=== PATIENT | male | born 1970 | race Caucasian/White ===

== ENCOUNTER 2021-04-18 10:02 | Emergency (ER) | payer OTHER ==
[2021-04-18] MEDS ORDERED: KETOROLAC 15 MG/ML 1 ML VIAL IM STA (10:20)
--- NOTE | 2021-04-18 10:28 | ED ---
General Adult HPI - General Chief complaint: Chest Pain Stated complaint: rib pain Time Seen by Provider: 04/18/21 10:13 Source: patient, RN notes reviewed Mode of arrival: ambulatory Limitations: no limitations - History of Present Illness Initial comments: Patient is a 50-year-old male that presents to the emergency department complaining of inferior bilateral rib pain. He notes that he was opening his pull when he leaned over the railing and felt his ribs crack kind of like his fingers popping. He does have significant medical history of a esophagectomy and gastric pull-up due to cancer. He has lost 100 pounds. He notes that when the pain happened it was 6-7 pops followed by intense pain that made him a little bit lightheaded. He noted that today he came in just to get evaluated to make sure he didn't have any broken ribs or any serious issues. She noted that the pain was approximately 7 out of 10 but declined any opiate type pain m edications as he still wants to go to work today. He was in no apparent distress or pain while sitting up in bed during the exam interview. She noted that he is tender to the inferior aspect of his bilateral ribs. He did note that on deep inspiration he does have some pain where his ribs are sore. He denied any palpitations shortness of breath headache nausea vomiting diarrhea constipation fever fatigue chills pain radiating to his back. - Related Data Allergies Allergy/AdvReac Type Severity Reaction Status Date / Time No Known Allergies Allergy Verified 04/18/21 10:07 Review of Systems ROS Statement: Those systems with pertinent positive or pertinent negative responses have been documented in the HPI. ROS Other: All systems not noted in ROS Statement are negative. Past Medical History Past Medical History: Cancer Additional Past Medical History / Comment(s): esophageal ca History of Any Multi-Drug Resistant Organisms: None Reported Additional Past Surgical History / Comment(s): esophagus removed and 3/4 of intestine removed Past Psychological History: No Psychological Hx Reported Smoking Status: Never smoker Past Alcohol Use History: None Reported Past Drug Use History: Marijuana General Exam Limitations: no limitations General appearance: alert, in no apparent distress, other (Tenderness to palpation over bilateral lower ribs and xiphoid process area) Head exam: Present: atraumatic, normocephalic, normal inspection Eye exam: Present: normal appearance, PERRL, EOMI. Absent: scleral icterus, conjunctival injection, periorbital swelling Neck exam: Present: normal inspection Respiratory exam: Present: normal lung sounds bilaterally. Absent: respiratory distress, wheezes, rales, rhonchi, stridor Cardiovascular Exam: Present: regular rate, normal rhythm, normal heart sounds. Absent: systolic murmur, diastolic murmur, rubs, gallop, clicks GI/Abdominal exam: Present: soft, normal bowel sounds. Absent: distended, tende rness, guarding, rebound, rigid Extremities exam: Present: normal inspection, full ROM, normal capillary refill. Absent: tenderness, pedal edema, joint swelling, calf tenderness Neurological exam: Present: alert, oriented X3, CN II-XII intact Psychiatric exam: Present: normal affect, normal mood Skin exam: Present: warm, dry, intact, normal color. Absent: rash Course Vital Signs 04/18/21 10:02 Temperature 97.4 F L Pulse Rate 55 L Respiratory 18 Rate Blood Pressure 139/76 O2 Sat by Pulse 100 Oximetry EKG Findings - EKG Comments: EKG Findings:: Ventricular rate 50 bpm, RI interval 158 ms, QRS duration 104 ms, QT/QTc 426/388 ms, PRT axis 81/76/59. Sinus bradycardia, otherwise normal ECG. Medical Decision Making - Medical Decision Making 50-year-old male with injury to his inferior ribs while opening his pool. Labs, EKG, x-ray of the ribs and chest, 15 mg Toradol ordered. Labs unremarkable X-ray negative for any acute osseous processes or rib fractures. Case discussed with Dr. Pimentel, patient can discharge home with follow-up primary care. - Lab Data Result diagrams: 04/18/21 10:30 04/18/21 10:30 Lab Results 04/18/21 04/18/21 04/18/21 Range/Units 10:30 10:30 10:30 WBC 5.7 (3.8-10.6) k/uL RBC 4.70 (4.30-5.90) m/uL Hgb 14.3 (13.0-17.5) gm/dL Hct 42.9 (39.0-53.0) % MCV 91.3 (80.0-100.0) fL MCH 30.3 (25.0-35.0) pg MCHC 33.2 (31.0-37.0) g/dL RDW 12.9 (11.5-15.5) % Plt Count 301 (150-450) k/uL MPV 6.4 Neutrophils % 46 % Lymphocytes % 39 % Monocytes % 9 % Eosinophils % 3 % Basophils % 2 % Neutrophils # 2.6 (1.3-7.7) k/uL Lymphocytes # 2.2 (1.0-4.8) k/uL Monocytes # 0.5 (0-1.0) k/uL Eosinophils # 0.2 (0-0.7) k/uL Basophils # 0.1 (0-0.2) k/uL PT 9.9 (9.0-12.0) sec INR 0.9 (<1.2) APTT 24.1 (22.0-30.0) sec Sodium 139 (137-145) mmol/L Potassium 4.4 (3.5-5.1) mmol/L Chloride 106 (98-107) mmol/L Carbon Dioxide 28 (22-30) mmol/L Anion Gap 5 mmol/L BUN 12 (9-20) mg/dL Creatinine 0.77 (0.66-1.25) mg/dL Est GFR (CKD-EPI)AfAm >90 (>60 ml/min/1.73 sqM) Est GFR (CKD-EPI)NonAf >90 (>60 ml/min/1.73 sqM) Glucose 95 (74-99) mg/dL Calcium 9.3 (8.4-10.2) mg/dL Magnesium 1.8 (1.6-2.3) mg/dL Total Bilirubin 0.4 (0.2-1.3) mg/dL AST 27 (17-59) U/L ALT 17 (4-49) U/L Alkaline Phosphatase 52 (38-126) U/L Troponin I (0.000-0.034) ng/mL Total Protein 6.7 (6.3-8.2) g/dL Albumin 4.3 (3.5-5.0) g/dL 04/18/21 Range/Units 10:30 WBC (3.8-10.6) k/uL RBC (4.30-5.90) m/uL Hgb (13.0-17.5) gm/dL Hct (39.0-53.0) % MCV (80.0-100.0) fL MCH (25.0-35.0) pg MCHC (31.0-37.0) g/dL RDW (11.5-15.5) % Plt Count (150-450) k/uL MPV Neutrophils % % Lymphocytes % % Monocytes % % Eosinophils % % Basophils % % Neutrophils # (1.3-7.7) k/uL Lymphocytes # (1.0-4.8) k/uL Monocytes # (0-1.0) k/uL Eosinophils # (0-0.7) k/uL Basophils # (0-0.2) k/uL PT (9.0-12.0) sec INR (<1.2) APTT (22.0-30.0) sec Sodium (137-145) mmol/L Potassium (3.5-5.1) mmol/L Chloride (98-107) mmol/L Carbon Dioxide (22-30) mmol/L Anion Gap mmol/L BUN (9-20) mg/dL Creatinine (0.66-1.25) mg/dL Est GFR (CKD-EPI)AfAm (>60 ml/min/1.73 sqM) Est GFR (CKD-EPI)NonAf (>60 ml/min/1.73 sqM) Glucose (74-99) mg/dL Calcium (8.4-10.2) mg/dL Magnesium (1.6-2.3) mg/dL Total Bilirubin (0.2-1.3) mg/dL AST (17-59) U/L ALT (4-49) U/L Alkaline Phosphatase (38-126) U/L Troponin I <0.012 (0.000-0.034) ng/mL Total Protein (6.3-8.2) g/dL Albumin (3.5-5.0) g/dL - EKG Data -: EKG Interpreted by [facility] EKG shows normal: sinus rhythm Rate: bradycardia EKG Comments: Ventricular rate 50 bpm, RI interval 158 ms, QRS duration 104 ms, QT/QTc 426/388 ms, PRT axis 81/76/59. Sinus bradycardia, otherwise normal ECG. - Radiology Data Radiology results: report reviewed, image reviewed Chest x-ray: No acute cardiopulmonary process. No acute displaced rib fractures seen bilaterally. Disposition Clinical Impression: Costochondritis Disposition: HOME SELF-CARE Condition: Stable Instructions (If sedation given, give patient instructions): Costochondritis (ED) Additional Instructions: Please return to the Emergency Department if symptoms worsen or any other concerns. Irritation or gradually go away with time. Can take Tylenol for pain control. Follow-up with primary care as needed. Is patient prescribed a controlled substance at d/c from ED?: No Referrals: Dilshad Elizalde MD [Primary Care Provider] - 1-2 days Time of Disposition: 11:24
[2021-04-18 10:44] LABS: Basophils # (A) 0.1 k/uL (0-0.2); Basophils % (A) 2 %; Eosinophils # (A) 0.2 k/uL (0-0.7); Eosinophils % (A) 3 %; HCT 42.9 % (39.0-53.0); HGB 14.3 gm/dL (13.0-17.5); Lymphocytes # (A) 2.2 k/uL (1.0-4.8); Lymphocytes % (A) 39 %; MCH 30.3 pg (25.0-35.0); MCHC 33.2 g/dL (31.0-37.0); MCV 91.3 fL (80.0-100.0); Mean Platelet Volume 6.4; Monocytes # (A) 0.5 k/uL (0-1.0); Monocytes % (A) 9 %; Neutrophils # (A) 2.6 k/uL (1.3-7.7); Neutrophils % (A) 46 %; Platelet Count 301 k/uL (150-450); RDW 12.9 % (11.5-15.5); WBC 5.7 k/uL (3.8-10.6)
[2021-04-18 10:52] LABS: ALT 17 U/L (4-49); AST 27 U/L (17-59); African American GFR (CKD) >90 (>60 ml/min/1.73 sqM); Albumin 4.3 g/dL (3.5-5.0); Alkaline Phosphatase 52 U/L (38-126); Anion Gap 5 mmol/L; Blood Urea Nitrogen 12 mg/dL (9-20); Calcium 9.3 mg/dL (8.4-10.2); Carbon Dioxide 28 mmol/L (22-30); Chloride 106 mmol/L (98-107); Glucose 95 mg/dL (74-99); Magnesium 1.8 mg/dL (1.6-2.3); Non-African American GFR(CKD) >90 (>60 ml/min/1.73 sqM); Potassium 4.4 mmol/L (3.5-5.1); Sodium 139 mmol/L (137-145); Total Bilirubin 0.4 mg/dL (0.2-1.3); Total Protein 6.7 g/dL (6.3-8.2)
--- NOTE | 2021-04-18 11:01 | XR ---
EXAMINATION TYPE: XR ribs bilat w pa chest xray DATE OF EXAM: 04/18/2021 CLINICAL HISTORY: Chest and bilateral rib pain after injury. TECHNIQUE: Single frontal view of the chest is obtained. A frontal and oblique images of the bilatera l ribs. COMPARISON: None FINDINGS: There is no focal air space opacity, pleural effusion, or pneumothorax seen. The cardiac silhouette size is within normal limits. Surgical changes from total esophagectomy and gastric pull up procedure are present. The osseous structures are intact. Dedicated images of the bilateral ribs show no acute displaced fractures. Overlying soft tissue is un remarkable bilaterally. IMPRESSION: 1. No acute cardiopulmonary process. 2. No acute displaced rib fractures seen bilaterally.
[2021-04-18 11:04] LABS: INR 0.9 (<1.2); Partial Thromboplastin Time 24.1 sec (22.0-30.0); Prothrombin Time 9.9 sec (9.0-12.0)
[2021-04-18 11:26] VITALS: BP 128/79; PULSE 45; RESP 20; TEMP 97.3
== END 2021-04-18 11:30 | disposition home or self-care (01) ==
LOC: EC 10:02
DX: M94.0 Chondrocostal junction syndrome [Tietze] (principal)
CPT/HCPCS: 99285; 36415; 93005; 80053; 83735; 84484; 85025; 85610; 85730; 71111; J1885; 96372

== ENCOUNTER 2021-11-04 07:00 | Day surgery (SDC) | payer BC, OTHER ==
[2021-11-02 13:11] VITALS: BMI 22.9
[2021-11-04] MEDS ORDERED: LIDOCAINE 1% (10MG/ML) FOR IV START INTRADERMA ONE (07:41)
[2021-11-04 07:42] VITALS: RESP 16; TEMP 97
[2021-11-04] MEDS: LACTATED RINGERS 1,000 ML IV SCH ×2 (07:42→08:04)
[2021-11-04] MEDS ORDERED: PROPOFOL 10 MG/ML 20 ML VIAL IV ONE (08:04)
--- NOTE | 2021-11-04 08:27 | P.PCN ---
Date of Procedure: 11/04/21 Procedure(s) Performed: BRIEF HISTORY: Patient is a 51-year-old pleasant male scheduled for an elective colonoscopy as a part of screening for colorectal neoplasia. PROCEDURE PERFORMED: Colonoscopy with snare polypectomy. PREOPERATIVE DIAGNOSIS: Screening for colon cancer IV sedation per Anesthesia. PROCEDURE: After informed consent was obtained, the patient, was brought into the endoscopy unit. IV sedation was administered by Anesthesia under continuous monitoring. Digital rectal examination was normal. Initially the Olympus CF-160 flexible video colonoscope was then inserted in the rectum, gradually advanced into the cecum without any difficulty. Careful examination was performed as the scope was gradually being withdrawn. Ileocecal valve and the appendiceal orifice were visualized and appeared normal. Prep was excellent. Mucosa of the cecum, appeared normal. In the ascending colon there was a 7 mm flat polyp removed by snare polypectomy. Rest of the ascending colon, transverse colon, descending colon, sigmoid colon, and rectum appeared normal. In the distal rectum there was a 3 mm polyp removed by snare polypectomy. Retroflexion was performed in the rectum and no lesions were seen. The patient tolerated the procedure well. IMPRESSION: 7 mm flat ascending colon polyp status post-polypectomy 3 mm distal rectal polyp status post polypectomy RECOMMENDATIONS: Findings of this examination were discussed with the patient as well as his family. He was advised to follow with the biopsies as. If the biopsy reveals adenoma he can have a repeat colonoscopy in 5 years.
[2021-11-04 08:43] VITALS: BP 107/63; PULSE 53
== END 2021-11-04 08:55 | disposition home or self-care (01) ==
LOC: ORWHC2ENDO 07:00
PROVIDERS: ATTEND Internal Medicine Gastroenterology
DX: Z12.11 Encounter for screening for malignant neoplasm of colon (principal); D12.2 Benign neoplasm of ascending colon; K63.5 Polyp of colon; I48.91 Unspecified atrial fibrillation; F17.210 Nicotine dependence, cigarettes, uncomplicated; K21.9 Gastro-esophageal reflux disease without esophagitis; Z85.01 Personal history of malignant neoplasm of esophagus; Z79.899 Other long term (current) drug therapy
CPT/HCPCS: 88305; 45385; J2704

== ENCOUNTER → 2025-05-11 | Outpatient (CLI) | payer OTHER ==
[2025-05-12 02:10] LABS: Basophils # (A) 0.09 X 10*3/uL (0.00-0.10); Basophils % (A) 1.4 %; Eosinophils # (A) 0.14 X 10*3/uL (0.04-0.35); Eosinophils % (A) 2.1 %; HCT 42.4 % (39.6-50.0); HGB 13.5 g/dL (13.0-17.0); Lymphocytes % (A) 45.4 %; MCH 29.3 pg (27.0-32.0); MCHC 31.8 g/dL (32.0-37.0); MCV 92.2 FL (80.0-97.0); Mean Platelet Volume 9.9 FL (9.5-12.2); Monocytes # (A) 0.75 X 10*3/uL (0.20-1.00); Monocytes % (A) 11.3 %; NRBC Per 100 WBC 0 X 10*3/uL (0.00-0.01); Neutrophils # (A) 2.62 X 10*3/uL (1.80-7.70); Neutrophils % (A) 39.6 %; Platelet Count 335 X 10*3/uL (140-440); RDW 13.2 % (11.5-14.5); WBC 6.61 X 10*3/uL (4.50-10.00)
[2025-05-12 02:36] LABS: BUN/Creat Ratio 11.36 Ratio (12.00-20.00); Blood Urea Nitrogen 12.5 mg/dL (9.0-27.0); Carbon Dioxide 26.2 mmol/L (21.6-31.8); Chloride 103 mmol/L (96-109); Glucose 86 mg/dL (70-110); Potassium 4.4 mmol/L (3.5-5.5); Sodium 139 mmol/L (135-145)
== END | disposition home or self-care (01) ==
LOC: LABPAT 15:45
PROVIDERS: ATTEND Orthopaedic Surgery
DX: Z01.812 Encounter for preprocedural laboratory examination (principal); M23.91 Unspecified internal derangement of right knee
CPT/HCPCS: 80048; 85025; 93005

== ENCOUNTER 2025-05-19 06:23 | Day surgery (SDC) | payer OTHER ==
[2025-05-15 17:36] VITALS: BMI 24.4
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
[~2025-05-19 06:23] MED LIST: LIDOCAINE 1% (10MG/ML) FOR IV START INTRADERMA PRN
[2025-05-19] MEDS: IV FLUID CONTINUATION 1,000 ML IV ONE ×2 (06:48→09:22)
[2025-05-19] MEDS ORDERED: MIDAZOLAM 2 MG/2 ML VIAL IV PRN (07:00)
[2025-05-19] MEDS ORDERED: fentaNYL (PF) 50 MCG/ML 2 ML AMP IVP PRN (07:00)
[2025-05-19] MEDS: DEXAMETHASONE SOD PHOSPHATE 4 MG/ML 1 ML VIAL IV ONE (07:15)
[2025-05-19] MEDS: ONDANSETRON 4 MG/2 ML VIAL IVP ONE (07:15)
[2025-05-19] MEDS: LACTATED RINGERS 1,000 ML IV SCH (07:15)
[2025-05-19] MEDS ORDERED: PROPOFOL 10 MG/ML 20 ML VIAL IV ONE (07:36)
[2025-05-19] MEDS ORDERED: fentaNYL (PF) 50 MCG/ML 2 ML AMP ONE (07:36)
[2025-05-19] MEDS ORDERED: LIDOCAINE 1% INJ 10MG/ML (20 ML MDV) ONE (07:36)
[2025-05-19] MEDS ORDERED: MIDAZOLAM 2 MG/2 ML VIAL ONE (07:36)
[2025-05-19] MEDS ORDERED: SUCCINYLCHOLINE CHLORIDE 200 MG/10 ML VIAL IV ONE (07:36)
[2025-05-19] MEDS: EPINEPHrine (PF) 1 ML in SODIUM CHLORIDE 0.9% IRRIGATIO 3,000 ML IRRIGATION ONE (07:58)
--- NOTE | 2025-05-19 08:33 | P.OP ---
Date of Procedure: 05/19/25 Preoperative Diagnosis: Right knee internal derangement Postoperative Diagnosis: Right knee posterior medial meniscal tear/chondrocalcinosis Procedure(s) Performed: Right knee arthroscopic partial medial meniscectomy/synovectomy of the medial, lateral, and patellofemoral compartments Anesthesia: JEEVAN Surgeon: Kev Elizalde Estimated Blood Loss (ml): 10 Pathology: none sent Condition: stable Disposition: PACU Indications for Procedure: The patient is a 54-year-old male who presents with right knee pain and mechanical symptoms despite conservative measures. A discussion of the risks and benefits of operative intervention versus continued conservative measures was made with the patient. He opted to proceed with surgery. Operative risks include infection, neurovascular injury, development of blood clots, possible incomplete resolution of symptoms, possible worsening of symptoms and need for subsequent procedures was discussed. Informed consent was obtained. Operative Findings: As below Description of Procedure: The patient was brought to the operating room, and after induction of general anesthesia examined the right knee. Collaterals were stable, Drew was negative, and posterior drawer was negative. The right lower extremity was prepped and draped in a normal fashion. A superior lateral portal was made through a 3 mm skin incision superior and lateral to the patella. This was used for outflow. A lateral portal was made through a 5 mm vertical skin incision lateral to the patella tendon above the joint line. Diagnostic arthroscopy was performed. On inspection of the medial compartment, a complex tear involving the posterior horn of the medial meniscus in the white-junction was noted. This is debrided back to stable base with a motorized shaver and straight baskets. Chondrocalcinosis was present. The anterior medial compartment had moderate synovitis there was debrided with a motorized shaver. Grade 2/3 chondral changes were noted involving the distal medial femoral condyle. Several small chondral flaps were debrided with a motorized shaver back to a stable base. On inspection of the notch, the anterior cruciate ligament appeared to be intact. On inspection of the lateral compartment, again chondrocalcinosis was noted. Anterolateral synovitis was debrided with a motorized shaver. On inspection of the patellofemoral articulation, the synovial tissue was debrided with a motorized shaver. There was a small grade 4 osteochondral defect involving the inferior medial most aspect of the patella. The gutters were clear debris. The knee was then thoroughly irrigated. The portals were closed with Steri- Strips. A sterile dressing was applied in addition to a compression stocking. The patient was awoken from general anesthesia and transferred to recovery room in good condition. Blood loss was estimated at 10 mL. No complications were incurred.
[2025-05-19 08:36] VITALS: TEMP 97.1
[2025-05-19] MEDS: HYDROmorphone 0.5 MG/0.5 ML SYRINGE IVP PRN (08:53)
[2025-05-19] MEDS: HYDROcodone/APAP 5-325MG 1 EACH TAB PO STA (10:04)
[2025-05-19 10:17] VITALS: BP 124/82; PULSE 51; RESP 16
== END 2025-05-19 10:46 | disposition home or self-care (01) ==
LOC: OR 06:23
PROVIDERS: ATTEND Orthopaedic Surgery
DX: S83.241A Other tear of medial meniscus, current injury, right knee, initial encounter (principal); M54.2 Cervicalgia; I48.91 Unspecified atrial fibrillation; K21.9 Gastro-esophageal reflux disease without esophagitis; F12.90 Cannabis use, unspecified, uncomplicated; Z90.49 Acquired absence of other specified parts of digestive tract; Z85.01 Personal history of malignant neoplasm of esophagus; Z90.89 Acquired absence of other organs; Z87.891 Personal history of nicotine dependence; Z79.899 Other long term (current) drug therapy; X58.XXXA Exposure to other specified factors, initial encounter
CPT/HCPCS: 29881; 29876; J2250; J0330; J1100; J0690; J2405; J0171; J2003; J3010; J2704; J1171

== ENCOUNTER 2025-05-26 10:01 | Day surgery (SDC) | payer BC, OTHER ==
[2025-05-25 11:08] VITALS: BMI 25.1
[~2025-05-26 10:01] MED LIST changes: +ONDANSETRON 4 MG/2 ML VIAL IVP PRN
[2025-05-26] MEDS: IV FLUID CONTINUATION 1,000 ML IV ONE (10:26)
[2025-05-26] MEDS: LACTATED RINGERS 1,000 ML IV SCH (10:42)
[2025-05-26 10:46] VITALS: TEMP 97.2
[2025-05-26] MEDS ORDERED: PROPOFOL 10 MG/ML 20 ML VIAL IV ONE (11:22)
[2025-05-26] MEDS ORDERED: LIDOCAINE 2% (PF) 20 MG/ML 5 ML VIAL ONE (11:22)
--- NOTE | 2025-05-26 11:36 | P.PCN ---
Date of Procedure: 05/26/25 Procedure(s) Performed: BRIEF HISTORY: Patient is a 54-year-old, pleasant, white male scheduled for an upper endoscopy as a part of follow-up of esophageal cancer diagnosed in 2016. He status post distal esophagectomy at the time of diagnosis. PROCEDURE PERFORMED: Esophagogastroduodenoscopy. PREOPERATIVE DIAGNOSIS: Follow-up esophageal cancer diagnosed in 2018. IV sedation per anesthesia. PROCEDURE: After informed consent was obtained, the patient was brought into the endoscopy unit. IV sedation was administered by Anesthesia under continuous monitoring. Initially the Olympus GIF-140 video endoscope was inserted into the mouth. Esophagus intubated without any difficulty. It was gradually advanced into the stomach there was large amount of retained solid and liquid food in the stomach suggestive of gastroparesis. Despite multiple attempts I was not able to advance the scope into the pylorus because could not be visualized from retained food. The stomach was adequately insufflated with air, and upon careful examination, patient has portions of the mucosa of the antrum, body, appeared normal. The scope was then withdrawn into the esophagus. The anastomosis was located at 25 cm from the incisors. There were 2 superficial erosions at the anastomosis consistent with LA grade B reflux esophagitis. Rest of the esophagus appeared normal and the patient tolerated the procedure well. IMPRESSION: 1. Gastroesophageal anastomosis located at 25 cm from the incisors with 2 superficial erosions consistent with LA grade a reflux esophagitis. 2. Retained liquid and solid food in the stomach suggestive of gastroparesis. RECOMMENDATIONS: The findings of this examination were discussed with the patient as well as his family. He was advised to continue with Carafate 1 g 4 times daily and small frequent meals..
[2025-05-26 12:15] VITALS: BP 108/65; PULSE 78; RESP 16
== END 2025-05-26 12:13 ==
LOC: ORWHC2ENDO 10:01
PROVIDERS: ATTEND Internal Medicine Gastroenterology
DX: K22.10 Ulcer of esophagus without bleeding (principal); I48.91 Unspecified atrial fibrillation; K21.9 Gastro-esophageal reflux disease without esophagitis; Z87.891 Personal history of nicotine dependence; Z85.01 Personal history of malignant neoplasm of esophagus; Z79.899 Other long term (current) drug therapy
CPT/HCPCS: 43235; J2704; J2003